=== PATIENT | female | born 1970 | race Caucasian/White ===

== ENCOUNTER 2018-11-26 19:08 | Emergency (ER) | payer MEDICAID ==
[~2018-11-26] VITALS: Ht 172.7 cm; Wt 76.2 kg
[2018-11-26 21:29] VITALS: BP 121/65
== END 2018-11-26 21:31 | disposition home or self-care (01) ==
LOC: ED 20:09
DX: R10.13 Epigastric pain (principal); R10.12 Left upper quadrant pain; F17.210 Nicotine dependence, cigarettes, uncomplicated
CPT/HCPCS: 36415; 71046; 80053; 81001; 83690; 84484; 84703; 85025; 87086; 93005; 96374; 96375; 99284; J1885; J2405

== ENCOUNTER 2019-06-18 16:58 | Emergency (ER) | payer MEDICAID ==
[~2019-06-18] VITALS: Ht 167.6 cm; Wt 74.8 kg
[2019-06-18 17:16] VITALS: BP 125/70
--- NOTE | 2019-06-18 17:21 | NUR ---
PT STATES COUGH, WEAKNESS, "HEAD COLD" X 1 WEEK.
[2019-06-18] MEDS ORDERED: BENZONATATE 100 MG CAPSULE ONE (17:53)
[2019-06-18] MEDS ORDERED: ACETAMINOPHEN 500 MG TABLET ONE (17:53)
--- NOTE | 2019-06-18 17:56 | NUR ---
PT MEDICATED PER ORDERS.
[2019-06-18] MEDS ORDERED: ACETAMINOPHEN 500 MG TABLET PO ONE (18:00)
[2019-06-18] MEDS ORDERED: BENZONATATE 100 MG CAPSULE PO ONE (18:00)
[2019-06-18 18:17] LABS: RAPID INFLUENZA A Negative (Negative); RAPID INFLUENZA B Negative (Negative)
--- NOTE | 2019-06-18 18:25 | NUR ---
ALL RESULTS BACK AT THIS TIME, CHART UP FOR RECHECK.
--- NOTE | 2019-06-18 19:23 | NUR ---
Patient/Caregiver given discharge instructions and they have confirmed that they understand the instructions. Patient ambulatory with steady gait.
== END 2019-06-18 19:25 | disposition home or self-care (01) ==
LOC: ED 17:30
DX: J20.9 Acute bronchitis, unspecified (principal); B97.89 Other viral agents as the cause of diseases classified elsewhere; F17.210 Nicotine dependence, cigarettes, uncomplicated; M79.10 Myalgia, unspecified site
CPT/HCPCS: 71046; 87400; 99284; 99406; J7512

== ENCOUNTER 2020-07-06 17:45 | Emergency (ER) | payer OTHER, MEDICAID ==
[~2020-07-06] VITALS: Ht 170.2 cm; Wt 86.0 kg
[2020-07-06] MEDS ORDERED: BUPIVACAINE 0.25% ONE (18:27)
[2020-07-06] MEDS ORDERED: KETOROLAC 60 MG/2 ML ONE (18:28)
[2020-07-06] MEDS ORDERED: BUPIVACAINE/PF 0.5% INFIL ONE (18:30)
[2020-07-06] MEDS ORDERED: TRIAMCINOLONE ACETONIDE 40 MG/ML, 1ML IM ONE (18:30)
[2020-07-06] MEDS ORDERED: KETOROLAC 30 MG/1 ML IM ONE (18:30)
--- NOTE | 2020-07-06 18:43 | NUR ---
BEDSIDE REPORT FROM TAMMIE MAIER, PT CARE TRANSFERRED AT THIS TIME. PT RESTING ON GURNEY, NAD, APPEARS COMFORTABLE, BED IN LOWEST, RAILS ENGAGED, CALL LIGHT ON LAP, AWAITING MED FROM PHARMACY. [place].
--- NOTE | 2020-07-06 19:01 | NUR ---
THIS RN CALLED PHARMACY TO FOLLOW UP ON MEDICATION, MED IS BEING SENT AT THIS TIME.
[2020-07-06 20:06] VITALS: BP 124/81
--- NOTE | 2020-07-06 20:07 | NUR ---
Patient given discharge instructions and they have confirmed that they understand the instructions. Patient ambulatory with steady gait. NAD, DENIES ADDITIONAL QUESTIONS OR NEEDS AT THIS TIME. NO PERSONAL BELONGINGS LEFT AFTER DC.
== END 2020-07-06 20:13 | disposition home or self-care (01) ==
LOC: ED 20:04
DX: S46.911A Strain of unspecified muscle, fascia and tendon at shoulder and upper arm level, right arm, initial encounter (principal); S16.1XXA Strain of muscle, fascia and tendon at neck level, initial encounter; M62.838 Other muscle spasm; F17.200 Nicotine dependence, unspecified, uncomplicated; R94.31 Abnormal electrocardiogram [ECG] [EKG]; Z88.0 Allergy status to penicillin; X58.XXXA Exposure to other specified factors, initial encounter; Y93.89 Activity, other specified; Y92.009 Unspecified place in unspecified non-institutional (private) residence as the place of occurrence of the external cause; Y99.8 Other external cause status
CPT/HCPCS: 20552; 93005; 96372; 99284; J1885

== ENCOUNTER 2020-07-20 16:40 | Emergency (ER) | payer OTHER, MEDICAID ==
[~2020-07-20] VITALS: Ht 175.3 cm; Wt 82.1 kg
--- NOTE | 2020-07-20 17:27 | NUR ---
THIS IS A 50 YEAR OLD FEMALE WHO STATES SHE HAD RECENTLTY COMPLETED A STEROID DOSE PACK AND THEN RECIEVED HER MODERNA VACCINE. PT STATES NOW EXPERIENCING PALPATATIONS, NAUSEA, CRAMPS, AND ABD BLOATING.
[2020-07-20] MEDS ORDERED: ONDANSETRON ODT 4 MG ONE (18:00)
[2020-07-20] MEDS ORDERED: ACETAMINOPHEN 500 MG TABLET ONE (18:00)
[2020-07-20] MEDS ORDERED: ONDANSETRON ODT 4 MG PO ONE (18:00)
[2020-07-20] MEDS ORDERED: ACETAMINOPHEN 500 MG TABLET PO ONE (18:00)
--- NOTE | 2020-07-20 18:05 | NUR ---
PT MEDICATED PER JUN. PT EDUCATED ON PLAN OF CARE.
[2020-07-20 18:25] LABS: RAPID INFLUENZA A Negative (Negative); RAPID INFLUENZA B Negative (Negative)
[2020-07-20 18:26] LABS: BASOPHILS % (AUTO) 1 % (0-1); EOSINOPHILS % (AUTO) 1 % (1-7); LYMPHOCYTES % (AUTO) 34 % (22-44); MEAN CORPUSCULAR HEMOGLOBIN 30.2 pg (27.0-34.8); MEAN CORPUSCULAR HGB CONC 33.4 g/dL (32.4-35.8); MEAN PLATELET VOLUME 7.1 fL (7.4-10.4); MONOCYTES % (AUTO) 5 % (2-9); NEUTROPHILS % (AUTO) 60 % (42-75); PLATELET COUNT 336 x10^3/uL (130-400); RED BLOOD COUNT 4.72 x10^6/uL (3.82-5.3); RED CELL DISTRIBUTION WIDTH 13.7 % (9.6-15.2)
[2020-07-20 18:38] LABS: ALANINE AMINOTRANSFERASE 24 U/L (12-78); ALBUMIN 3.6 g/dL (3.4-5.0); ANION GAP 7 mmol/L (5-15); CALCIUM 8.6 mg/dL (8.5-10.1); CHLORIDE 109 mmol/L (98-107); CREATININE 0.91 mg/dL (0.55-1.02)
[2020-07-20 18:40] LABS: ALKALINE PHOSPHATASE 102 U/L (45-117); BILIRUBIN,TOTAL 0.2 mg/dL (0.2-1.0); TOTAL PROTEIN 7.2 g/dL (6.4-8.2)
--- NOTE | 2020-07-20 18:41 | NUR ---
PT RESTING IN [facility]. VSS. AWAITING LAB RESULTS
--- NOTE | 2020-07-20 18:51 | NUR ---
received report from DARRION Salas
--- NOTE | 2020-07-20 18:52 | NUR ---
correction: received report from DARRION Salas
[2020-07-20 19:06] LABS: MD SCAN
--- NOTE | 2020-07-20 19:57 | NUR ---
PA at bedside for recheck.
[2020-07-20 20:31] VITALS: BP 115/82
--- NOTE | 2020-07-20 20:31 | NUR ---
patient discharged with instruction. verbalized understanding.
== END 2020-07-20 20:34 | disposition home or self-care (01) ==
LOC: ED 20:31
DX: M79.10 Myalgia, unspecified site (principal); Z20.822 Contact with and (suspected) exposure to COVID-19; Z87.891 Personal history of nicotine dependence
CPT/HCPCS: 36415; 71045; 80053; 85025; 87400; 99285; Q0162; U0003

== ENCOUNTER 2020-12-25 17:01 | Emergency (ER) | payer MEDICAID, OTHER ==
[~2020-12-25] VITALS: Ht 165.1 cm; Wt 72.0 kg
--- NOTE | 2020-12-25 17:08 | NUR ---
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
[2020-12-25 18:06] LABS: BASOPHILS % (AUTO) 1 % (0-1); EOSINOPHILS % (AUTO) 1 % (1-7); LYMPHOCYTES % (AUTO) 33 % (22-44); MEAN CORPUSCULAR HEMOGLOBIN 29.7 pg (27.0-34.8); MEAN CORPUSCULAR HGB CONC 33.6 g/dL (32.4-35.8); MEAN PLATELET VOLUME 8.1 fL (7.4-10.4); MONOCYTES % (AUTO) 4 % (2-9); NEUTROPHILS % (AUTO) 62 % (42-75); PLATELET COUNT 332 x10^3/uL (130-400); RED CELL DISTRIBUTION WIDTH 13.6 % (9.6-15.2)
[2020-12-25 18:12] LABS: ALBUMIN 4.1 g/dL (3.4-5.0); ANION GAP 9 mmol/L (5-15); CALCIUM 9.6 mg/dL (8.5-10.1); CHLORIDE 106 mmol/L (98-107)
[2020-12-25 18:19] LABS: ALANINE AMINOTRANSFERASE 33 U/L (12-78); ALKALINE PHOSPHATASE 125 U/L (45-117); BILIRUBIN,TOTAL 0.3 mg/dL (0.2-1.0); TOTAL PROTEIN 8.2 g/dL (6.4-8.2); TROPONIN I < 0.015 ng/mL (0.000-0.045)
[2020-12-25 21:11] VITALS: BP 162/81
--- NOTE | 2020-12-25 21:11 | NUR ---
PT AMBULATORY TO TRIAGE ROOM FOR PROVIDER EVAL. VSS.
--- NOTE | 2020-12-25 21:14 | NUR ---
DR VALLECILLO PRESENT. PT ASSESSMENT, TEST RESULTS REVIEWED AND QUESTIONS ANSWERED. D/C PLAN DISCUSSED.
--- NOTE | 2020-12-25 21:15 | NUR ---
Patient/Caregiver given discharge instructions and they have confirmed that they understand the instructions. Patient ambulatory with steady gait.
== END 2020-12-25 21:24 | disposition home or self-care (01) ==
LOC: ED 17:30
DX: J06.9 Acute upper respiratory infection, unspecified (principal); Z20.822 Contact with and (suspected) exposure to COVID-19; F17.200 Nicotine dependence, unspecified, uncomplicated; R94.31 Abnormal electrocardiogram [ECG] [EKG]
CPT/HCPCS: 71045; 80053; 83880; 84484; 85025; 93005; 99285; U0003; U0005